=== PATIENT | male | born 1980 | race African-American/Black ===

== ENCOUNTER 2021-05-04 12:45 | Outpatient (CLI) | payer OTHER ==
[2021-05-04 13:47] VITALS: BP 146/99
--- NOTE | 2021-05-04 13:47 | SLEEP CARE CONSULTATION ---
Information from patient questionnaire entered by Bree Ragland MA. I have reviewed and concur with the information entered by Bree Ragland MA. This document represents the service I personally performed and the decisions made by me, Sherice Villasenor ARNP. History of Present Illness Service Date and Time: 05/04/2021 1245 Reason for Visit: New patient Chief Complaint: reports: Insomnia, Unrefreshed sleep, Snoring, Observed pauses in breathing, Fatigue, Frequent awakenings at night, Other Date of Onset: 3 YEARS, did happen before but is now worse in last 3 years Usual bedtime: 1030 PM Time it takes to fall asleep: VARIES, sometimes minutes to 4 hours on bad nights Snores at night: Yes Observed to quit breathing while asleep: Yes Sleeps alone due to snoring: Yes Number of times waking at night: 2 Reasons for waking at night: reports: Choking, Snoring, Bathroom, Other (unknown reasons) Toss, Turn, or Twitch while sleeping: Yes Recalls having dreams: No Usually gets out of bed at: 0700 Feels refreshed in the morning: No Morning headache: Yes (2 day a week; they can last all day; sleeping helps them resolve) Sleepy or fatigued during the day: Yes Ever fallen asleep while driving: Yes (drowsy driving; no accidents ) Takes day naps: Yes (1 x a week; 1.5 hours) Dreams during day naps: Yes Prior sleep studies: No Additional HPI information: I had the pleasure of seeing SOMMER STAHL today regarding the possibility of him having a sleep disorder. His current complaints are fatigue, frequent night awakenings, observed pauses in breathing, snoring and unrefreshed sleep. He is tired all the time. He has been told he snores by his and he has woke up hearing himself snoring. He has also woke up coughing from "pinching sensation" in the back of his throat. His states he stops breathing just prior to this coughing awakening. He can fall asleep when he gets quiet. He cannot drive long distances without pulling over for breaks to wake himself up. He states that he can get a nap sometimes but he will not feel refreshed afterwards. He will fall asleep quickly sometimes but other times it can take up to 4 hours to fall asleep. He will also wake up and see that it is "0300" and then toss and turn trying to get comfortable to go back to sleep. 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 Patient is and lives in . Have you smoked in the past 12 months: No Alcohol use: No Caffeine use: No Family History Family history of sleep disordered breathing: Yes Family Hx Sleep Apnea: Mother: Snoring, Father: Snoring, Grandparent: Snoring Allergies and Home Medications Known drug allergies: No Drug allergies reviewed: Yes Home medication list reviewed: Yes ( no daily medications) Review of Systems Cardiovascular: denies: high blood pressure Gastrointestinal: reports: heartburn Neurological: denies: head trauma Psychiatric: denies: anxiety, depression, mood disorder Ear/Nose/Throat: reports: wisdom teeth removed. denies: injury to nose, tonsillectomy Immunologic: reports: allergies to food or environment (seasonal allergies) Physical Exam Vital signs obtained and entered by: TAWNYA MARIE Blood Pressure: 146/99 (PULSE 84, RESP 14, ) Cuff size: wrist Heart Rate: 79 O2 Saturation: 97 (CLOTH MASK) Height: 6 ft 2 in Weight: 270 lb (PT CLOTHES) Body Mass Index: 34.7 BMI Classification: Obese Neck circumference: 18 (INCHES) Soft palate: long Hard palate: normal Uvula: long Uvula visualization: 25% Mallampati Class III Tongue: enlarged in size with teeth mai on lateral edges Tonsils: 1+ Neck: normal w/o lymphadenopathy or thyromegaly Heart: regular rate and rhythm Lungs: clear bilaterally Impression and Plan 1. Suspected Obstructive Sleep Apnea-Hypopnea Syndrome, as suggested by a history of loud and irregular snoring, observed cessation of breath while asleep, gasping or choking in sleep, morning headache, frequent awakening during the night, unrefreshed sleep, cognitive impairment, and excessive daytime sleepiness. Narrow oropharynx and obesity are common predisposing factors for obstructive sleep apnea-hypopnea syndrome. I recommend proceeding to polysomnography to confirm the diagnosis and to assess severity. If the patient has significant sleep disordered breathing, a manual CPAP titration study will also be performed to find the optimal treatment pressure. I informed the patient of what the sleep studies involve and after some discussion, obtained agreement to proceed. The pathophysiology of obstructive sleep apnea-hypopnea syndrome was discussed with the patient and health risks of cardiovascular and cerebrovascular disease if not treated. Risks of drowsy driving discussed in detail and patient advised to avoid long distance driving and to car clerk pullman at the first sign of drowsiness. Patient agreed to plan. * Schedule polysomnography +- manual CPAP titration study and return in 1-2 weeks after the study to discuss results. * Avoid long distance driving or driving when feeling sleepy. * Avoid alcohol, sedative and muscle relaxant around bedtime. * Attempt to lose weight. * Review instructions provided by trained office staff on how to prepare for the sleep study. * Return for follow-up after sleep study completed. Counseling Topics: Weight loss health impact Visit Type: In Office Time Spent with Patient (minutes): 30 Provider Statement: I spent 100% of the Face to Face Visit with the patient with greater than 50% spent counseling the patient and coordination of care.
== END 2021-05-04 12:46 | disposition home or self-care (01) ==
LOC: SC 12:45
PROVIDERS: ATTEND Nurse Practitioner Family
DX: R06.83 Snoring (principal); G47.8 Other sleep disorders; R06.81 Apnea, not elsewhere classified; R51.9 Headache, unspecified; G47.10 Hypersomnia, unspecified; R53.83 Other fatigue; E66.9 Obesity, unspecified; Z68.34 Body mass index [BMI] 34.0-34.9, adult
CPT/HCPCS: 99203; 99212

== ENCOUNTER 2021-06-14 20:31 | Outpatient (CLI) | payer OTHER | END 2021-06-14 20:32 | disposition home or self-care (01) | LOC: SC 20:31 | PROVIDERS: ATTEND Nurse Practitioner Family | DX: G47.33 Obstructive sleep apnea (adult) (pediatric) (principal) | CPT/HCPCS: 95810 ==

== ENCOUNTER 2021-07-10 13:55 | Outpatient (CLI) | payer OTHER ==
--- NOTE | 2021-07-10 14:26 | SLEEP CARE CONSULTATION ---
Information from patient questionnaire entered by Bree Ragland MA. I have reviewed and concur with the information entered by Bree Ragland MA. This document represents the service I personally performed and the decisions made by , Sherice Villasenor ARNP. History of Present Illness Service Date and Time: 07/10/2021 1355 Initial [place] Sleepiness Scale score: 16 Current [place] Sleepiness Scale score: 24 (06/2021) Additional HPI information: SOMMER STAHL returns for follow up and results of the recently performed polysomnography. I explained the pathophysiology behind obstructive sleep apnea. We then spent quite a bit of time discussing different treatment options. For mild obstructive sleep apnea, surgery and oral appliance are alternatives to nasal CPAP therapy but in moderate or severe cases, nasal CPAP is the most effective and reliable treatment. Because apnea is primarily in supine position, then positional management therapy could be effective. Methods discussed such as positioning with pillows to prevent supine sleep. I reviewed the impact of weight changes on sleep apnea and strongly recommended losing weight. After some discussion, the patient opted to go with the nasal CPAP therapy. Nasal autoCPAP set at 4-15 cmH20 will be ordered with rationale explained. A manual titration study will be ordered if unable to find optimal pressure with office adjustments. I explained how CPAP machine works and what to expect when using the machine. Using CPAP every night in order to get used to it was emphasized. Patient advised to put CPAP mask on before getting into bed so as not to fall asleep without CPAP. To assist acclimation to CPAP use, it could also be used for a short time during day while reading or watching TV. The patient was instructed to call the CPAP supplier to discuss any mechanical problem that may occur. If the mask given is uncomfortable or is difficult to keep on through the night even with adjustment, contact the CPAP supplier as many will replace with another mask style if notified before 30 days. If snoring or perceives is not getting enough air or too much air from the machine, notify this office. [facility] patient education PAP tips reviewed and given to patient. Patient does not drink alcohol. Patient was cautioned about risks of drowsy driving until sleepiness symptoms resolve. Sleep Study - Results Type of Sleep Study: Polysomnography (F/U POLY, 06/14/21 [facility] Prior sleep studies: No Polysomnography/Home Sleep Study results: IMPRESSION: The quality of the study is good. The patient had normal sleep efficiency. The sleep architecture was abnormal for sleep fragmentation and reduced amount of time spent in slow wave sleep (N3). Respiratory monitoring showed severe obstructive sleep apnea-hypopnea (AHI = 33.4) associated with frequent arousals, oxyhemoglobin desaturation and moderate hypoxia (nimo oxygen saturation of 70%) . The respiratory events occurred mainly during supine sleep (supine AHI = 41.4; non-supine = 12.66). Snore was moderate to loud in intensity. There was no significant periodic leg movement of sleep. Cardiac rhythm was normal sinus rhythm without significant arrhythmia. No abnormal behavior (parasomnia) observed during the night. Allergies and Home Medications Home medication list reviewed: Yes (no changes) Review of Systems Review of systems same as previous: Yes (no changes) Physical Exam Vital signs obtained and entered by: TAWNYA MARIE Blood Pressure: 145/99 (RESP 18, PULSE 81, ) Heart Rate: 68 O2 Saturation: 98 (PAPER MASK) Height: 6 ft 2 in Weight: 268 lb (PT CLOTHES) Body Mass Index: 34.4 BMI Classification: Obese Impression and Plan 1. Obstructive Sleep Apnea-Hypopnea Syndrome, severe, with lowest oxygen saturation of 70%. Obviously this is the cause of the patients symptoms of unrefreshed sleep, and excessive daytime sleepiness. As mentioned above, the patient will be started on nasal autoCPAP therapy with pressure set at 4-15 cmH2 O. Compliance guidelines also reviewed. A copy of compliance guidelines will be given for reference at check out. Because the apnea is more severe supine, I instructed to avoid sleeping supine using pillow positioning until able to start CPAP use. 2. Hypoxemia, moderate, nimo oxygen saturation of 70% and 13.5 minutes spent under 89%. His baseline oxygen saturation was normal with an oxygen saturation of 94%. * Nasal auto CPAP therapy, pressure at 4-15 cm H2O. * Attempt to lose weight. * Avoid alcohol consumption near bedtime. * Avoid supine sleep until using CPAP. * The patient is again cautioned about driving until sleepiness completely resolves. * Return one month after CPAP obtained. I will assess response to therapy and compliance at that time. Counseling Topics: Sleeping position, Weight loss health impact Visit Type: In Office Time Spent with Patient (minutes): 20 Provider Statement: I spent 100% of the Face to Face Visit with the patient with greater than 50% spent counseling the patient and coordination of care.
[2021-07-10 14:27] VITALS: BP 145/99
== END 2021-07-10 13:56 | disposition home or self-care (01) ==
LOC: SC 13:55
PROVIDERS: ATTEND Nurse Practitioner Family
DX: G47.33 Obstructive sleep apnea (adult) (pediatric) (principal); R09.02 Hypoxemia; E66.9 Obesity, unspecified; Z68.34 Body mass index [BMI] 34.0-34.9, adult
CPT/HCPCS: 99212; 99213

== ENCOUNTER 2021-07-18 09:22 | Outpatient (CLI) | payer OTHER ==
--- NOTE | 2021-07-18 12:30 | MRI Report ---
PROCEDURE: Lumbar Spine W/O INDICATIONS: DORSALGIA TECHNIQUE: Noncontrast sagittal T1 spin echo and T2 fast echo, sagittal STIR, axial T1 and T2 fast spin echo thr ough the lumbar spine. In cases with scoliosis, additional coronal T2 fast spin echo may be performe d. COMPARISON: None. FINDINGS: Image quality: Excellent. Alignment and Curvature: There is normal bony alignment. Bone Marrow: Marrow is of normal overall signal. No acute vertebral body compression fractures. Spinal Cord: Conus medullaris terminates at the L1 level. Visualized cord demonstrates normal signa l and size. Paraspinous Soft Tissues: No paravertebral masses. T12-L1: Normal in appearance. L1-L2: Normal in appearance. L2-L3: Normal in appearance. L3-L4: Disc and facets are normal in appearance. Congenitally short pedicles with moderate narrowing of the central canal. Mild bilateral neural foraminal narrowing. No neural compression. L4-L5: Slight loss of disc signal. Minimal, diffuse disc bulge. Mild bilateral facet appear tree. Con genitally short pedicles. Moderate to severe narrowing of the central canal is slight compression of the traversing nerve roots of the cauda equina. Moderate to severe right and moderate left neural for aminal narrowing with slight compression of the exiting right L4 nerve root. L5-S1: Disc has a normal appearance. Mild bilateral facet hypertrophy. Congenitally short pedicles. M oderate narrowing of the central canal. Moderate to severe bilateral neural foraminal narrowing with slight compression of exiting L5 nerve roots. IMPRESSION: 1. Mild L4-L5 degenerative disc disease. 2. Mild L4-L5 and L5-S1 facet hypertrophy. 3. L3-L4, L4-L5 and L5-S1 congenitally short pedicles. 4. Moderate to severe L4-L5 central canal narrowing with slight compression of the traversing nerve r oots or cauda equina. 5. Moderate to severe right L4-L5 neural foraminal narrowing with slight compression of exiting right L4 nerve root. Moderate to severe bilateral L5-S1 neural foraminal narrowing with slight compression of exiting bilateral L5 nerve roots. Reviewed by: Ana Michael MD, PhD on 07/18/2021 12:28 PM PDT Approved by: Ana Michael MD, PhD on 07/18/2021 12:28 PM PDT Station ID: [id number]
== END 2021-07-18 09:23 | disposition home or self-care (01) ==
LOC: DI 09:22
PROVIDERS: ATTEND Student in an Organized Health Care Education/Training Program
DX: M51.16 Intervertebral disc disorders with radiculopathy, lumbar region (principal); M48.061 Spinal stenosis, lumbar region without neurogenic claudication; M51.17 Intervertebral disc disorders with radiculopathy, lumbosacral region; M48.07 Spinal stenosis, lumbosacral region; M47.26 Other spondylosis with radiculopathy, lumbar region; M47.27 Other spondylosis with radiculopathy, lumbosacral region